=== PATIENT | female | born 1975 | race Caucasian/White ===

== ENCOUNTER 2024-01-03 11:17 | Emergency (ER) | payer BC ==
[~2024-01-03] VITALS: Ht 167.6 cm; Wt 99.3 kg
[2024-01-03 11:30] VITALS: BP_SYST 124; PULSE 84; RESP 16; TEMP 97.2; O2SAT 100
[2024-01-03 13:02] VITALS: BP_SYST 124; PULSE 84; RESP 16; TEMP 97.2; O2SAT 100
== END 2024-01-03 13:02 | disposition home or self-care (01) ==
LOC: SED 11:17
DX: S09.90XA Unspecified injury of head, initial encounter (principal); W22.8XXA Striking against or struck by other objects, initial encounter; Y93.89 Activity, other specified; Y92.89 Other specified places as the place of occurrence of the external cause; Y99.8 Other external cause status
CPT/HCPCS: 70450-TC; 99284